=== PATIENT | female | born 2000 | race Caucasian/White ===

== ENCOUNTER 2025-10-14 16:45 | Emergency (ER) | payer OTHER, SELFPAY ==
[2025-10-14] VITALS (18 sets, daily range): BP systolic 110–150; BP diastolic 56–74; PULSE 97–115; RESP 8–24; TEMP 37.1; O2SAT 95–100; BMI 257.3
[2025-10-14] MEDS: EPINEPHrine 1 MG/ML 0.3 MG IM (17:03)
--- NOTE | 2025-10-14 17:07 | ED.ALLEREA ---
HPI - Allergic Reaction <Alicia George PA-C - Last Filed: 10/14/25 19:08> General Chief complaint: Allergic Reaction Stated complaint: allergic reaction Time Seen by Provider: 10/14/25 16:56 Source: patient Mode of arrival: Ambulatory History of Present Illness HPI narrative: Elidia Winters is a very pleasant 25-year-old female with no reported past medical history, daily allergies takes Zyrtec, who presents to the emergency department for acute allergic reaction that occurred 25 minutes prior to arrival. Patient states she experienced her 1st allergic reaction this Saturday while eating, she had sensation of throat closing but it improved with Benadryl. However today while eating Thanksgiving she was eating vegetables with dip when she started feeling throat closing again, a family member used they are 0.3 mg EpiPen on the patient and her symptoms started to get better. She then came to the emergency department. However now that she is in the emergency department her symptoms are starting to come back, she feels like her throat is closing and she has hives on her face. She is protecting her own airway, speaking clear full sentences, no stridor or wheezing. 0.3 mg IM epinephrine given again, approximately 25 minutes after the 1st dose. Denies a history of anaphylaxis or any known allergens besides seasonal allergies. She does not take any prescription medications. Related Data Previous Rx's ?Medication ?Instructions ?Recorded epinephrine 0.3 mg/0.3 mL 0.3 ml IM Q5-15M PRN anaphylaxis 10/14/25 injection, auto-injector #2 ea prednisone 20 mg tablet 40 mg (2 x 20 mg) PO DAILY 5 days 10/14/25 #10 tabs Allergies Allergy/AdvReac Type Severity Reaction Status Date / Time No Known Drug Allergies Allergy Verified 10/14/25 17:52 Review of Systems <Alicia George PA-C - Last Filed: 10/14/25 19:08> Review of Systems ROS Unobtainable: All systems reviewed & are unremarkable except as noted in HPI and below Patient History <Alicia George PA-C - Last Filed: 10/14/25 19:08> Social History Smoking Status: Never smoker Smoking Status: Never smoker Exam <Alicia George PA-C - Last Filed: 10/14/25 19:08> Narrative Exam Narrative: GENERAL: 25 year old patient appears stated age. Well-developed patient, in mild distress, speaking in clear sentences, no respiratory distress. HEAD: Atraumatic. Normocephalic. EYES: Extraocular motions intact. No scleral icterus. No injection or drainage. ENT: Nose without bleeding, purulent drainage. Throat without erythema, tonsillar hypertrophy or exudate. Uvula midline. Airway patent. NECK: Trachea midline. Cervical ROM intact. No stridor. CARDIOVASCULAR: Increased rate and regular rhythm. RESPIRATORY: ?Nonlabored respirations. ?Speaking in clear, full sentences. ?Clear to auscultation. Breath sounds equal bilaterally. No wheezes, rales, or rhonchi. ? NEURO: AOx3. ?Clear speech. ?Moves all 4 extremities appropriately. SKIN: Urticaria on right side of face around eye and mouth. Initial Vital Signs Initial Vital Signs: Vital Signs Temperature 98.7 F 10/14/25 16:54 Pulse Rate 113 H 10/14/25 16:54 Respiratory Rate 20 10/14/25 16:54 Blood Pressure 150/70 H 10/14/25 16:54 Pulse Oximetry 100 10/14/25 16:54 Oxygen Delivery Method Room Air 10/14/25 16:54 <Adam Galeas MD - Last Filed: 10/15/25 00:39> Initial Vital Signs Initial Vital Signs: Vital Signs Temperature 98.7 F 10/14/25 16:54 Pulse Rate 113 H 10/14/25 16:54 Respiratory Rate 20 10/14/25 16:54 Blood Pressure 150/70 H 10/14/25 16:54 Pulse Oximetry 100 10/14/25 16:54 Oxygen Delivery Method Room Air 10/14/25 16:54 Course <Alicia George PA-C - Last Filed: 10/14/25 19:08> Orders Ordered: Discontinued Medications Diphenhydramine HCl (Diphenhydramine 50 Mg/Ml Vial) 50 mg IV NOW ONE Stop: 10/14/25 17:06 Last Admin: 10/14/25 17:08 Dose: 50 mg Documented By: JEISON Epinephrine HCl (Epinephrine 1 Mg/Ml) 0.3 mg IM NOW ONE Stop: 10/14/25 17:06 Last Admin: 10/14/25 17:03 Dose: 0.3 mg Documented By: JEISON Famotidine (Famotidine 20 Mg/2 Ml Vial) 20 mg IV NOW MONSERRAT Last Admin: 10/14/25 17:08 Dose: 20 mg Documented By: JEISON Methylprednisolone (Methylprednisolone Succ 125 Mg/2 Ml Vial) 125 mg IV NOW ONE Stop: 10/14/25 17:06 Last Admin: 10/14/25 17:08 Dose: 125 mg Documented By: JEISON Vital Signs Vital signs: Vital Signs - 8 hr 10/14/25 16:54 10/14/25 17:37 10/14/25 17:40 Temperature 98.7 F Pulse Rate 113 H 115 H Respiratory Rate 20 20 Blood Pressure 150/70 H 138/65 Pulse Oximetry 100 98 Oxygen Delivery Method Room Air 10/14/25 17:40 10/14/25 17:50 10/14/25 17:50 Temperature Pulse Rate 112 H 108 H Respiratory Rate 11 L 24 Blood Pressure 110/61 Pulse Oximetry 99 100 Oxygen Delivery Method 10/14/25 18:01 10/14/25 18:01 10/14/25 18:10 Temperature Pulse Rate 108 H Respiratory Rate 15 Blood Pressure 137/74 128/60 Pulse Oximetry 100 Oxygen Delivery Method 10/14/25 18:10 10/14/25 18:19 10/14/25 18:20 Temperature Pulse Rate 112 H 105 H Respiratory Rate 9 L 18 Blood Pressure 120/56 L Pulse Oximetry 100 99 Oxygen Delivery Method 10/14/25 18:20 10/14/25 18:30 10/14/25 18:30 Temperature Pulse Rate 107 H 104 H Respiratory Rate 8 L 14 Blood Pressure 130/60 Pulse Oximetry 99 98 Oxygen Delivery Method 10/14/25 18:40 10/14/25 18:40 10/14/25 18:50 Temperature Pulse Rate 108 H Respiratory Rate 16 Blood Pressure 132/63 135/65 Pulse Oximetry 98 Oxygen Delivery Method 10/14/25 18:50 10/14/25 19:00 10/14/25 19:00 Temperature Pulse Rate 108 H 107 H Respiratory Rate 18 16 Blood Pressure 127/64 Pulse Oximetry 99 100 Oxygen Delivery Method 10/14/25 19:10 10/14/25 19:10 10/14/25 19:20 Temperature Pulse Rate 105 H Respiratory Rate 16 Blood Pressure 120/64 120/67 Pulse Oximetry 99 Oxygen Delivery Method 10/14/25 19:20 10/14/25 19:30 10/14/25 19:30 Temperature Pulse Rate 106 H 101 H Respiratory Rate 13 15 Blood Pressure 121/68 Pulse Oximetry 99 99 Oxygen Delivery Method 10/14/25 19:40 10/14/25 19:40 10/14/25 19:50 Temperature Pulse Rate 97 H Respiratory Rate 18 Blood Pressure 126/69 121/68 Pulse Oximetry 97 Oxygen Delivery Method 10/14/25 19:50 10/14/25 20:12 Temperature Pulse Rate 98 H 104 H Respiratory Rate 19 16 Blood Pressure 135/70 Pulse Oximetry 95 98 Oxygen Delivery Method Room Air <Adam Galeas MD - Last Filed: 10/15/25 00:39> Orders Ordered: Discontinued Medications Diphenhydramine HCl (Diphenhydramine 50 Mg/Ml Vial) 50 mg IV NOW ONE Stop: 10/14/25 17:06 Last Admin: 10/14/25 17:08 Dose: 50 mg Documented By: JEISON Epinephrine HCl (Epinephrine 1 Mg/Ml) 0.3 mg IM NOW ONE Stop: 10/14/25 17:06 Last Admin: 10/14/25 17:03 Dose: 0.3 mg Documented By: JEISON Famotidine (Famotidine 20 Mg/2 Ml Vial) 20 mg IV NOW MONSERRAT Last Admin: 10/14/25 17:08 Dose: 20 mg Documented By: JEISON Methylprednisolone (Methylprednisolone Succ 125 Mg/2 Ml Vial) 125 mg IV NOW ONE Stop: 10/14/25 17:06 Last Admin: 10/14/25 17:08 Dose: 125 mg Documented By: JEISON Vital Signs Vital signs: Vital Signs - 8 hr 10/14/25 16:54 10/14/25 17:37 10/14/25 17:40 Temperature 98.7 F Pulse Rate 113 H 115 H Respiratory Rate 20 20 Blood Pressure 150/70 H 138/65 Pulse Oximetry 100 98 Oxygen Delivery Method Room Air 10/14/25 17:40 10/14/25 17:50 10/14/25 17:50 Temperature Pulse Rate 112 H 108 H Respiratory Rate 11 L 24 Blood Pressure 110/61 Pulse Oximetry 99 100 Oxygen Delivery Method 10/14/25 18:01 10/14/25 18:01 10/14/25 18:10 Temperature Pulse Rate 108 H Respiratory Rate 15 Blood Pressure 137/74 128/60 Pulse Oximetry 100 Oxygen Delivery Method 10/14/25 18:10 10/14/25 18:19 10/14/25 18:20 Temperature Pulse Rate 112 H 105 H Respiratory Rate 9 L 18 Blood Pressure 120/56 L Pulse Oximetry 100 99 Oxygen Delivery Method 10/14/25 18:20 10/14/25 18:30 10/14/25 18:30 Temperature Pulse Rate 107 H 104 H Respiratory Rate 8 L 14 Blood Pressure 130/60 Pulse Oximetry 99 98 Oxygen Delivery Method 10/14/25 18:40 10/14/25 18:40 10/14/25 18:50 Temperature Pulse Rate 108 H Respiratory Rate 16 Blood Pressure 132/63 135/65 Pulse Oximetry 98 Oxygen Delivery Method 10/14/25 18:50 10/14/25 19:00 10/14/25 19:00 Temperature Pulse Rate 108 H 107 H Respiratory Rate 18 16 Blood Pressure 127/64 Pulse Oximetry 99 100 Oxygen Delivery Method 10/14/25 19:10 10/14/25 19:10 10/14/25 19:20 Temperature Pulse Rate 105 H Respiratory Rate 16 Blood Pressure 120/64 120/67 Pulse Oximetry 99 Oxygen Delivery Method 10/14/25 19:20 10/14/25 19:30 10/14/25 19:30 Temperature Pulse Rate 106 H 101 H Respiratory Rate 13 15 Blood Pressure 121/68 Pulse Oximetry 99 99 Oxygen Delivery Method 10/14/25 19:40 10/14/25 19:40 10/14/25 19:50 Temperature Pulse Rate 97 H Respiratory Rate 18 Blood Pressure 126/69 121/68 Pulse Oximetry 97 Oxygen Delivery Method 10/14/25 19:50 10/14/25 20:12 Temperature Pulse Rate 98 H 104 H Respiratory Rate 19 16 Blood Pressure 135/70 Pulse Oximetry 95 98 Oxygen Delivery Method Room Air MDM - Allergic Reaction <Alicia George PA-C - Last Filed: 10/14/25 19:08> MDM Narrative Medical decision making narrative: 25-year-old female with no reported past medical history, daily allergies takes Zyrtec, who presents to the emergency department for acute allergic reaction that occurred 25 minutes prior to arrival while eating vegetables with dip. She denies possibility of . Differential diagnosis includes but is not limited to anaphylaxis, allergic reaction, food trigger, etc. On exam initially the patient is in mild distress secondary to sensation of throat closing however she is able to speak in clear full sentences, oropharynx is patent, no stridor or wheezing. She does have urticaria on the right side of her face. She started developing symptoms after eating vegetables with dip, no prior history of anaphylaxis but she did have a similar reaction on Saturday that resolved with Benadryl. She used a neighbor's 0.3 mg EpiPen and had improvement in her symptoms, came to the ER by private vehicle, however since coming to the ER she is now having worsening of her symptoms again proximally 25 minutes after the initial EpiPen. Additional 0.3 mg EpiPen was administered in addition to 125 Solu-Medrol, 20 Pepcid, 50 Benadryl. Subsequent exams patient continues to have improvement of her symptoms, highest improved significantly, no difficulty speaking breathing, no sensation of throat closing. We will continue to keep her on the quality assurance monitor and observe for minimum 3 hours. 1900: Case discussed with the nighttime attending physician, Dr. Galeas, did not shift change. At this time patient is resting comfortably, symptoms continued to be resolved. Discussed with the patient very cautious diet moving forward avoiding any possible triggers, following up promptly with her PCP for referral to client retention specialist. We will prescribe her a few days of steroids in addition to 2 EpiPens. Discussed use of EpiPen, calling 911, ED return precautions. Patient verbalized understanding all information and is stable at this time, awaiting continued observation. Prior to discharge. Discharge Plan Departure Patient Disposition: Home Clinical Impression: Allergy to food Anaphylaxis Qualifiers: Encounter type: initial encounter Qualified Code(s): T78.2XXA - Anaphylactic shock, unspecified, initial encounter Instructions: DI for Anaphylaxis, DI for Food Allergy, How to use an Epinephrine Auto-Injector -- Adult Activity Restrictions/Additional Instructions: Dear Ms. Winters, Thank you for coming to emergency department. Today you were evaluated for a severe allergic reaction suspected to be from a food-borne allergen. You were treated with an EpiPen x2, IV steroids Benadryl and Pepcid. Is very important to be cautious with your time moving forward and not eat any of the similar foods UA today that might have triggered your symptoms. You have been prescribed to EpiPen with 1 refill in addition to 5 days of steroids. Please complete the steroids and continue using your daily Zyrtec. If you ever experience a similar allergic reaction were concerns for anaphylaxis, use your EpiPen immediately and call 911. Please follow up with your primary care doctor as she will need referral to an tester rocket engine for further allergy testing. Please follow up with your primary care doctor within the next 2-3 days for ER follow-up. (If you do not have a PCP you can call [phone]. ?to schedule an appointment with an [facility] Primary Care Provider) IF YOU DEVELOP ANY NEW OR WORSENING SYMPTOMS, RETURN TO THE ER! Please read the attached instructions, they highlight more specific treatments and interventions for you at home. Thank you for letting me participate in your care, Alicia George PA-C Prescriptions: New epinephrine 0.3 mg/0.3 mL auto-injector 0.3 ml IM Q5-15M PRN (Reason: anaphylaxis) Qty: 2 1RF Rx Instructions: do not exceed 3 doses per episode prednisone 20 mg tablet 40 mg PO DAILY 5 Days Qty: 10 0RF Stand Alone Forms: Patient Portal/API ED Sign-out <Adam Galeas MD - Last Filed: 10/15/25 00:39> Cosign ED Attending Cosignature Attestation: I was immediately available in the department for consultation. This documentation has been reviewed and I agree with assessment and plan. Supervised by Adam Galeas MD
[2025-10-14] MEDS: FAMOTIDINE 20 MG/2 ML VIAL IV (17:08)
[2025-10-14] MEDS: methylPREDNISolone succ 125 MG/2 ML VIAL IV (17:08)
[2025-10-14] MEDS: diphenhydrAMINE 50 MG/ML VIAL IV (17:08)
--- NOTE | 2025-10-14 17:40 | PC.NURSE ---
pt has had two reactions in the past week to unknown food items. saturday pt able to manage sx with benadryl. today pt was eating vegetables and dip and broke into hives and reddened face with swelling pt had epi pen cryptanalyst. now at this time after second dose im epi and iv medications, pt facial redness and swelling decreased, reports feeling a little better
== END 2025-10-14 20:22 | disposition home or self-care (01) ==
PROVIDERS: Emergency Provider Physician Assistant
DX: T78.00XA Anaphylactic reaction due to unspecified food, initial encounter (principal)
CPT/HCPCS: 96372; 96374; 96375; 99284; J0165; J1200; J2919